=== PATIENT | male | born 1960 | race Caucasian/White ===

== ENCOUNTER 2020-04-02 18:12 | Emergency (ER) | payer OTHER ==
[~2020-04-02] VITALS: Ht 177.8 cm; Wt 74.8 kg
[~2020-04-02 18:12] MED LIST: BENADRYL25 MG PO; ELIMITE60 GM TOP; HYDROXYZINE HCL25 MG PO; LISINOPRIL5 MG PO; NOVOLOG MI100 UNITS/ SUB-Q; PERMETHRIN60 GM TOP; PREDNISONE20 MG PO; REGLAN10 MG PO; ULTRAM50 MG PO; VISTARIL25 MG PO; ZOFRAN ODT4 MG SL
[2020-04-02] MEDS ORDERED: NOVOLOG FL100 UNIT/1 SUB-Q (19:00)
[2020-04-02] MEDS ORDERED: ADMELOG SO100 UNIT/1 SQ (19:00)
[2020-04-02] MEDS ORDERED: ZOFRAN4 MG PO (21:40)
== END 2020-04-02 21:49 | disposition home or self-care (01) ==
LOC: ED 18:12
DX: E10.65 Type 1 diabetes mellitus with hyperglycemia (principal); K52.9 Noninfective gastroenteritis and colitis, unspecified; F17.200 Nicotine dependence, unspecified, uncomplicated; Z79.4 Long term (current) use of insulin
CPT/HCPCS: 80053; 81001; 82010; 82803; 85025; 96361; 96374; 99284-25; J1815; J2405; J7030

== ENCOUNTER 2020-04-03 17:06 | Observation (INO) | payer OTHER ==
[~2020-04-03] VITALS: Ht 177.8 cm; Wt 74.8 kg
[~2020-04-03 17:06] MED LIST changes: +ADMELOG SO100 UNIT/1 SQ; +NOVOLOG FL100 UNIT/1 SUB-Q; +ZOFRAN4 MG PO
--- OUTSIDE RECORDS SUMMARY | 2020-04-03 17:08 | XMS ---
PreManage Notification: CATHERINE ARRINGTON Security Pharmacognosist Events No recent Security Events currently on file CRITERIA MET - [facility] - 2 Visits in 30 Days CARE PROVIDERS There are no care providers on record at this time. Magalie has no Care Guidelines for this patient. Mirella VISIT COUNT (12 MO.) [address] [facility] [facility] TOTAL 4 NOTE: Visits indicate total known visits. ED/C VISIT TRACKING (12 MO.) 04/03/2020 17[facility] [facility] [address] [facility] [place] [facility]: Emergency COMPLAINT: - VOMITING 04/02/2020 18:13 [facility] [place] TYPE: Emergency COMPLAINT: - VOMITING 09/14/2019 12:03 [facility] Myrna Norris TYPE: Emergency DIAGNOSES: 0. VOMITING DM1 0. Vomiting, unspecified 1. 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 Other snf (current) drug therapy 2. 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 Dehydration 2. Vomiting, unspecified 2. Nicotine dependence, cigarettes, uncomplicated 05/08/2019 19:[facility] COMPLAINT: - CONGESTION, SWOLLEN NOSE, VERY PAINFUL DIAGNOSES: - Abscess, furuncle and carbuncle of nose - Other snf (current) drug therapy - Type 2 diabetes mellitus without complications - Other specified disorders of nose and nasal sinuses INPATIENT VISIT TRACKING (12 MO.) No inpatient visits to display in this time frame [id number]
--- NOTE | 2020-04-03 20:30 | NUR ---
PT ARRIVED TO THE FLOOR VIA STRECHER. PT IS ALERT AND ORIENTED. PT MADE TRANSFER FROM STRETCHER TO BED INDEPENDENTLY. FRESH WATER PROVIDED. PT HAS DIRTY JEANS ON BUT WISHES TO KEEP THEM ON. CALL LIGHT WITHIN REACH. PT INSTRUCTED ON HOW TO USE CALL LIGHT, BED ADJUSTMENT AND REMOTE.
--- NOTE | 2020-04-03 21:30 | NUR ---
PT HAD VOMITED AND SPILLED VOMIT FROM SICK SACK ONTO BED. 4MG ZOFRAN ADMINISTERED. CBG IMPROVING. INFUSION INFUSING ORDERED. BED FRESHENED. NEW IV ACCESS STARTED. PT HAD USES URINAL WITH GOOD OUTPUT AND CLEAR YELLOW URINE. NO FURTHER NEEDS AT THIS TIME. CALL LIGHT WITHIN REACH. VSS.
--- NOTE | 2020-04-04 01:41 | NUR ---
NEW ORDERS FROM DR. WEINSTEIN. SEE eMAR. CBG 177, INSULIN DRIP ADJUSTED ACCORDINGLY. ASSESSMENT COMPLETE. VSS. CHICKEN BROTH BROUGHT TO PATIENT ON REQUEST. CALL LIGHT WITHIN REACH.
--- NOTE | 2020-04-04 03:00 | NUR ---
pt APPEARS TO BE SLEEPING. EVEN UNLABORED BREATHING. PT IS EASILY AWOKEN NURSE ENTERS THE ROOM. pt HAS OCCASIONAL SPUTUM/BELCHING BUT NO FURTHER VOMITING. INSULIN DRIP BEING ADJUSTED PER PROTOCOL. CALL LIGHT WITHIN REACH.
--- NOTE | 2020-04-04 06:04 | NUR ---
CBG 160, PT NOW AT 1 UNIT/HR RATE INSULIN DRIP. PT REPORTS HE FEELS "MUCH BETTER" THAN LAST NIGHT. VSS. TEMP 98.9 WHICH IS DOWN FROM ADMIT TEMP OF 100.2. ASSESSMENT COMPLETE. PT REPORTS NO URGE TO URINATE AT THIS TIME. CALL LIGHT WITHIN REACH.
--- NOTE | 2020-04-04 07:30 | NUR ---
REPORT RECIEVED. PATIENT IS LAYING IN BED, ASKING FOR BREAKFAST. WILL GIVE CLEAR LIQUID.
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
--- NOTE | 2020-04-04 08:00 | NUR ---
ASSESSMENT DONE. TALKED WITH LUCIA ABOUT PLAN OF CARE FOR DAY. IS UNDERSTANDING. ACCUCHECK 182, INSULIN GTT INCREASED TO 1.2 UNITS HR. CMM TECHNICIAN HAS BEEN HERE TO SEE PATIENT.
--- NOTE | 2020-04-04 09:00 | NUR ---
DR. WEINSTEIN HAS BEEN HERE TO SEE PATIENT. DISCHARGE ORDERS RECIEVED.
[2020-04-04] MEDS ORDERED: LANTUS100 UNITS/ SUB-Q (09:20)
[2020-04-04] MEDS ORDERED: HUMALOG100 UNITS/ SUB-Q (09:21)
[2020-04-04] MEDS ORDERED: INSULIN SYRING1 EA20 MISC (09:22)
--- NOTE | 2020-04-04 09:40 | NUR ---
LANTUS INSULIN 25 UNITS SQ GIVEN.
--- NOTE | 2020-04-04 09:55 | NUR ---
[facility] COMPLETE
--- NOTE | 2020-04-04 10:00 | NUR ---
TOOK ONLY FEW BITES OF BREAKFAST. MONITOR AND IVF/IV INSULIN DC'D.
--- NOTE | 2020-04-04 11:00 | NUR ---
TOOK BREAKFAST POOR. STATES I HAVEN'T BEEN ABLE TO EAT FOR 7 DAYS, MY STOMACH IS A LOT SMALLER. DENEIS NAUSEA. UP TO SHOWER. IV SITES X 2 DC'D WITH CATH INTACT.
--- NOTE | 2020-04-04 11:05 | NUR ---
TOLERATED SHOWER WELL. DISCHARGE INSTRUCTIONS GIVEN WITH PATIENT UNDERSTANDING. INSULIN SYRINGES, ETOH PADS, SENT HOME WITH PATIENT. PHARMACY WILL SUPPLY INSULIN.
[2020-04-04] MEDS ORDERED: HUMULIN R100 UNIT/1 SUB-Q (11:15)
--- NOTE | 2020-04-04 11:30 | NUR ---
DISCHARGED VIA W/C ACCOMP BY DIGITAL ASSET COORDINATOR. PATIENT BROTHER TO TAKE PATIENT HOME.
== END 2020-04-04 11:30 | disposition home or self-care (01) ==
LOC: ED 17:06 → CCU 17:07
PROVIDERS: ADMIT Internal Medicine
DX: E10.10 Type 1 diabetes mellitus with ketoacidosis without coma (principal); E10.65 Type 1 diabetes mellitus with hyperglycemia; N17.9 Acute kidney failure, unspecified; I10 Essential (primary) hypertension; F17.210 Nicotine dependence, cigarettes, uncomplicated; Z59.0 Homelessness; Z79.4 Long term (current) use of insulin; Z20.828 Contact with and (suspected) exposure to other viral communicable diseases
CPT/HCPCS: 36415; 80048; 80053; 81001; 82010; 82800; 82803; 83036; 83735; 85025; 96361; 96372; 96374; 96376; 99285-25; C9803; G0378; J1650; J1815; J2405; J3480; J7030

== ENCOUNTER 2020-06-23 21:06 | Emergency (ER) | payer OTHER ==
[~2020-06-23] VITALS: Ht 177.8 cm; Wt 74.8 kg
[~2020-06-23 21:06] MED LIST changes: +HUMALOG100 UNITS/ SUB-Q; +HUMULIN R100 UNIT/1 SUB-Q; +INSULIN SYRING1 EA20 MISC; +LANTUS100 UNITS/ SUB-Q
[2020-06-24] MEDS ORDERED: HUMULIN R100 UNIT/1 INJ (05:36)
[2020-06-24] MEDS ORDERED: TEST N'GO1 EACH MISC (05:36)
== END 2020-06-24 05:55 | disposition home or self-care (01) ==
LOC: ED 21:06
DX: E10.649 Type 1 diabetes mellitus with hypoglycemia without coma (principal); T38.3X5A Adverse effect of insulin and oral hypoglycemic [antidiabetic] drugs, initial encounter; F17.200 Nicotine dependence, unspecified, uncomplicated
CPT/HCPCS: 80053; 85025; 96374; 96376; 99284-25

== ENCOUNTER 2020-06-26 09:04 | Emergency (ER) | payer OTHER ==
[~2020-06-26 09:04] MED LIST changes: +HUMULIN R100 UNIT/1 INJ; +TEST N'GO1 EACH MISC
--- OUTSIDE RECORDS SUMMARY | 2020-06-26 09:06 | XMS ---
PreManage Notification: CATHERINE ARRINGTON Security Collar Padder Blindstitch Events No recent Security Events currently on file CRITERIA MET - [facility] - 2 Visits in 30 Days CARE PROVIDERS MARK Ovalle Nurse Practitioner: 04/04/2020-Current PHONE: [phone] Magalie has no Care Guidelines for this patient. Mirella VISIT COUNT (12 MO.) [address] TOTAL 5 NOTE: Visits indicate total known visits. ED/UCC VISIT TRACKING (12 MO.) 06/26/2020 09:05 [facility] [place] TYPE: Emergency COMPLAINT: - BLOOD SUGAR PROBLEM 06/23/2020 21:07 [facility] [place] TYPE: Emergency COMPLAINT: - LOW BLOOD SUGAR 04/03/2020 17:06 [facility] [place] TYPE: Emergency COMPLAINT: - VOMITING 04/02/2020 18:13 [facility] [place] TYPE: Emergency COMPLAINT: - VOMITING DIAGNOSES: - intermediate manager (current) use of insulin - Type 1 diabetes mellitus with hyperglycemia - Nicotine dependence, unspecified, uncomplicated - Noninfective gastroenteritis and colitis, unspecified 09/14/2019 12:03 [facility] TYPE: Emergency DIAGNOSES: 0. VOMITING DM1 0. Vomiting, unspecified 1. Type 1 diabetes mellitus with hyperglycemia 2. detention (current) use of aspirin 2. Other intermodal dispatcher (current) drug therapy 2. Chronic obstructive pulmonary disease, unspecified 2. intermediate manager (current) use of insulin 2. Dehydration 2. Vomiting, unspecified 2. Nicotine dependence, cigarettes, uncomplicated INPATIENT VISIT TRACKING (12 MO.) 04/03/2020 17:07 [facility] TYPE: Observation COMPLAINT: - DKA DIAGNOSES: - Dehydration - Type 1 diabetes mellitus with ketoacidosis without coma - Nicotine dependence, cigarettes, uncomplicated - Homelessness - Type 1 diabetes mellitus with hyperglycemia - Acute gastritis without bleeding - Essential (primary) hypertension - Acute kidney failure, unspecified - Contact with and (suspected) exposure to other viral communicable diseases - intermediate manager (current) use of insulin [email or web address]
[2020-06-26] MEDS ORDERED: ADMELOG SO100 UNIT/1 SUB-Q (09:15)
[2020-06-26] MEDS ORDERED: BASAGLAR K100 UNIT/1 SUB-Q (09:16)
== END 2020-06-26 11:30 | disposition home or self-care (01) ==
LOC: ED 09:04
DX: E10.649 Type 1 diabetes mellitus with hypoglycemia without coma (principal); F17.200 Nicotine dependence, unspecified, uncomplicated
CPT/HCPCS: 80053; 81001; 85025; 99284

== ENCOUNTER 2020-07-13 09:03 | Emergency (ER) | payer OTHER ==
[~2020-07-13] VITALS: Ht 177.8 cm; Wt 74.8 kg
[~2020-07-13 09:03] MED LIST changes: +ADMELOG SO100 UNIT/1 SUB-Q; +BASAGLAR K100 UNIT/1 SUB-Q
--- OUTSIDE RECORDS SUMMARY | 2020-07-13 09:06 | XMS ---
PreManage Notification: CATHERINE ARRINGTON Security Scale Expert Events No recent Security Events currently on file CRITERIA MET - [facility] - 2 Visits in 30 Days CARE PROVIDERS MARK Ovalle Nurse Practitioner: 04/04/2020-Current PHONE: [phone] Magalie has no Care Guidelines for this patient. Care History Medical/Surgical 06/28/2020 [facility] [place] TRIED TO CONTACT PATIENT VIA PHONE- NUMBER PROVIDED IS NO LONGER IN SERVICE. - PLEASE CALL [phone] IF PATIENT IS SEEN IN THE ED. E.DYaron VISIT COUNT (12 MO.) 1 [facility] Myrna 5 [facility] TOTAL 6 NOTE: Visits indicate total known visits. ED/UCC VISIT TRACKING (12 MO.) 07/13/2020 09:03 [facility] [place] TYPE: Emergency COMPLAINT: - BLOOD SUGAR PROBLEM 06/26/2020 09:05 [facility] [place] TYPE: Emergency COMPLAINT: - BLOOD SUGAR PROBLEM DIAGNOSES: - Nicotine dependence, unspecified, uncomplicated - Type 1 diabetes mellitus with hypoglycemia without coma 06/23/2020 21:07 [facility] [place] TYPE: Emergency COMPLAINT: - LOW BLOOD SUGAR DIAGNOSES: - Nicotine dependence, unspecified, uncomplicated - Adverse effect of insulin and oral hypoglycemic [antidiabetic] drugs, initial encounter - Type 1 diabetes mellitus with hypoglycemia without coma 04/03/2020 17:06 [facility] TYPE: Emergency COMPLAINT: - VOMITING 04/02/2020 18:13 [facility] TYPE: Emergency COMPLAINT: - VOMITING DIAGNOSES: - marine oil terminal superintendent (current) use of insulin - Type 1 diabetes mellitus with hyperglycemia - Nicotine dependence, unspecified, uncomplicated - Noninfective gastroenteritis and colitis, unspecified 09/14/2019 12:03 [facility] Myrna TYPE: Emergency DIAGNOSES: 0. VOMITING DM1 0. Vomiting, unspecified 1. Type 1 diabetes mellitus with hyperglycemia 2. shelter (current) use of aspirin 2. Other correction (current) drug therapy 2. 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 Dehydration 2. Vomiting, unspecified 2. Nicotine dependence, cigarettes, uncomplicated INPATIENT VISIT TRACKING (12 MO.) 04/03/2020 17:07 [facility] [place] TYPE: Observation COMPLAINT: - DKA DIAGNOSES: - Dehydration - Type 1 diabetes mellitus with ketoacidosis without coma - Nicotine dependence, cigarettes, uncomplicated - Homelessness - Type 1 diabetes mellitus with hyperglycemia - Acute gastritis without bleeding - Essential (primary) hypertension - Acute kidney failure, unspecified - Contact with and (suspected) exposure to other viral communicable diseases - shelter (current) use of insulin [email or web address]
== END 2020-07-13 11:13 | disposition home or self-care (01) ==
LOC: ED 09:03
DX: E10.649 Type 1 diabetes mellitus with hypoglycemia without coma (principal); E10.65 Type 1 diabetes mellitus with hyperglycemia; F17.200 Nicotine dependence, unspecified, uncomplicated
CPT/HCPCS: 99284; J1815